=== PATIENT | female | born 1955 | race Two or more races ===

== ENCOUNTER 2017-07-22 05:05 | Inpatient (IN) | payer OTHER, BC ==
[2017-07-11 13:49] VITALS: BMI 27.8
[2017-07-22] MEDS ORDERED: BUPIVACAINE HCL/PF 0.5% (5MG/ML) 10 ML VIAL ONE (07:21)
[2017-07-22] MEDS ORDERED: LIDOCAINE 1%/EPI 1:100000 (20 ML MULTI DOSE VIAL) ONE (07:21)
[2017-07-22] MEDS ORDERED: GENTAMICIN SO4 80 MG/2 ML VIAL ONE (07:21)
[2017-07-22] MEDS ORDERED: VANCOMYCIN 1,000 MG VIAL (RESTRICTED TO ID ONLY) ONE (07:21)
--- NOTE | 2017-07-22 07:32 | HP ---
History & Physical Update - History History: No Change - Physical Physical: No Change - Assessment Assessment: No Change - Plan Plan: No Change
[2017-07-22] MEDS ORDERED: MIDAZOLAM HCL 2 MG/2 ML SINGLE DOSE VIAL ONE ×2 (08:28)
[2017-07-22] MEDS: ceFAZolin SODIUM 1 GM VIAL IVPB ONE ×3 (08:34→19:38)
[2017-07-22] MEDS ORDERED: PROPOFOL 20 ML ONE (08:35)
[2017-07-22] MEDS ORDERED: ROCURONIUM BROMIDE 50 MG/5 ML VIAL ONE ×2 (08:35→09:18)
[2017-07-22] MEDS ORDERED: VANCOMYCIN 1,000 MG VIAL (RESTRICTED TO ID ONLY) IVPB ONE (08:44)
[2017-07-22] MEDS ORDERED: ePHEDrine SULFATE 50 MG/1 ML AMPULE ONE (09:22)
[2017-07-22] MEDS ORDERED: THROMBIN (BOVINE) 5,000 UNIT VIAL TP ONE (09:43)
[2017-07-22] MEDS ORDERED: LIDOCAINE 1%/EPI 1:100000 (20 ML MULTI DOSE VIAL) INF ONE (09:43)
[2017-07-22] MEDS ORDERED: BUPIVACAINE HCL/PF 0.5% (5MG/ML) 10 ML VIAL IJ ONE (09:45)
[2017-07-22] MEDS ORDERED: NEOSTIGMINE METHYLSULFATE 0.5 MG/ML - 10 ML MDV ONE (10:52)
--- NOTE | 2017-07-22 11:26 | OP ---
Operative Note - Note: Operative Date: 07/22/17 Pre-Operative Diagnosis: Right T11/12 disc herniation, radiculopathy Operation: T11/12 (right) laminectomy, discectomy, fusion, instrumentation Post-Operative Diagnosis: Same as Pre-op Surgeon: Dwaine Magaña Laboratory Analyst: Brennan Nunez Anesthesiologist/ALGEBRAIST: Pili Bernal MD Anesthesia: General Specimens Removed: T11/12 disc Estimated Blood Loss (mls): 25 Drains, Volume Out (mls): 250 (Tejada) Fluid Volume Replaced (mls): 1,000 Operative Report Dictated: Yes
--- NOTE | 2017-07-22 11:27 | SURG ---
Surgery Brand Inspector Note Brand Inspector: Brennan Nunez PA-C Date of Service: 07/22/17 Diagnosis: T11/12 herniated disc, radiculopathy Procedure: T11/12 (right) laminectomy, discectomy, fusion, instrumentation I was present for the entirety of the operative procedure. For further detail, please refer to operative report. Visit type - Case Type Case Type: Scheduled Admission - New patient This patient is new to me today: Yes Date on this admission: 07/22/17
[2017-07-22] MEDS ORDERED: ONDANSETRON 4 MG/2 ML VIAL IVPUSH PRN (12:05)
[2017-07-22] MEDS: LACTATED RINGERS SOLUTION 1,000 ML IV SCH ×2 (15:47→17:24)
[2017-07-22] MEDS: HEPARIN NA (PORCINE) 5,000 UNITS/ML 1ML VIAL SQ SCH ×2 (15:47→21:16)
[2017-07-22] MEDS ORDERED: PT OWN MED DRAWER 7, Y5N ONE ×2 (17:13→19:23)
[2017-07-22] MEDS: oxyCODONE HCL 5 MG TABLET PO PRN ×2 (17:23→21:18)
[2017-07-22] MEDS ORDERED: traMADol HCL 50 MG TABLET PO PRN (18:00)
[2017-07-22] MEDS: ACETAMINOPHEN 325 MG TABLET (FP) PO PRN ×2 (18:53→23:52)
[2017-07-22] MEDS: CEFAZOLIN 1 GM PUSH 1 GM/10 ML DISP.SYRIN IVPUSH SCH (19:30)
[2017-07-22] MEDS: ESCITALOPRAM OXALATE 10 MG TABLET (FP) PO SCH (21:16)
[2017-07-22] MEDS ORDERED: diazePAM 2 MG TABLET PO PRN (22:00)
[2017-07-22] MEDS ORDERED: HEPARIN NA (PORCINE) 5,000 UNITS/ML 1ML VIAL SQ SCH (22:00)
[2017-07-23] MEDS: LACTATED RINGERS SOLUTION 1,000 ML IV SCH (03:02)
[2017-07-23] MEDS: ceFAZolin SODIUM 1 GM VIAL IVPB ONE (03:02)
[2017-07-23] MEDS: CEFAZOLIN 1 GM PUSH 1 GM/10 ML DISP.SYRIN IVPUSH SCH ×2 (03:03→10:01)
[2017-07-23] MEDS: HEPARIN NA (PORCINE) 5,000 UNITS/ML 1ML VIAL SQ SCH ×3 (06:21→21:50)
[2017-07-23 07:57] LABS: HEMATOCRIT 32.4 % (32.4-45.2); HEMOGLOBIN 10.6 GM/dL (10.7-15.3); MCH 30.7 pg (25.7-33.7); MCHC 32.7 g/dl (32.0-36.0); MEAN CELL VOLUME 93.8 fl (80-96); MEAN PLT VOLUME 8.7 fl (7.5-11.1); PLATELET COUNT 221 K/MM3 (134-434); RBC 3.45 M/mm3 (3.60-5.2); RDW 12.1 % (11.6-15.6); WHITE BLOOD COUNT 9.8 K/mm3 (4.0-10.0)
[2017-07-23 08:50] LABS: CHLORIDE 104 mmol/L (98-107); SODIUM 139 mmol/L (136-145)
[2017-07-23 09:00] LABS: ANION GAP 8 (8-16); BLOOD UREA NITROGEN 12 mg/dL (7-18); CO2 27 mmol/L (21-32); CREATININE 0.7 mg/dL (0.55-1.02); GLUCOSE,RANDOM 104 mg/dL (74-106)
[2017-07-23] MEDS ORDERED: traZODone HCL 50 MG TABLET (FP) PO SCH (10:00)
[2017-07-23] MEDS ORDERED: ASPIRIN COATED 81 MG TABLET.EC PO SCH (10:00)
[2017-07-23] MEDS: CALCIUM 500MG/VIT-D 200 UNITS COMBO TABLET (FP) PO SCH (10:02)
[2017-07-23] MEDS: MULTIVITAMINS THER W-MINERALS COMBO TABLET (FP) PO SCH (10:02)
[2017-07-23] MEDS: PANTOPRAZOLE 40 MG TABLET (FP) PO SCH (10:02)
[2017-07-23] MEDS: TIMOLOL 0.5% OPHTHALMIC SOL 5 ML BOTTLE OU SCH (10:03)
[2017-07-23] MEDS: oxyCODONE HCL 5 MG TABLET PO PRN ×2 (10:06→21:51)
[2017-07-23] MEDS: ASCORBIC ACID 500 MG TABLET (FP) PO SCH (10:06)
--- NOTE | 2017-07-23 10:38 | PATH ---
Surgical Pathology Report Patient Name: CARRIE RIVERA Med. Rec. #: [id number] /Age/Gender: 1955 (Age: 62) / F Account: [id number] Location: [facility] MED/SURG Taken: 07/22/2017 Received: 07/22/2017 Reported: 07/23/2017 Physicians: Dwaine Miles M.D. Specimen(s) Received DISC T11-T12 Clinical History Gout, right T11-T12 disc herniation Final Diagnosis DISC, T11-T12, DISCECTOMY: FRAGMENTS OF INTERVERTEBRAL DISC TISSUE. Electronically Signed Barbara Means M.D. Gross Description Received in formalin labeled "T11-T12 disc," is a 1.5 x 1.3 x 0.3 cm aggregate of lee fragments of cartilage and possible bone. The specimen is submitted in toto in one cassette, following decalcification. /07/22/201707/22/2017
[2017-07-23] MEDS ORDERED: SODIUM CHLORIDE 500 ML IV STA (10:46)
--- NOTE | 2017-07-23 12:26 | PN ---
Progress Note (short form) - Note Progress Note: Anesthesiology Post-op POD#1 s/p T11-12 discectomy and fusion under GA. Pt. feels well. She only c/o some light-headedness when walking. She otherwise has good pain control and denies n/v. VSS. Encouraged incentive spirometry.
--- NOTE | 2017-07-23 13:46 | PN ---
Progress Note (short form) - Note Progress Note: Pt seen earlier this am with Dr. Magaña. She has complaints of pain on the right side of her back. With attempting to get out of bed today the patient became vasovagal. Her vital were stable at the time. She had no complaints of CP /SOB and felt dizzy at the time. 500 NS bolus was given with repeat stable vitals of 125/70, 68, 20. Vital Signs Period Temp Pulse Resp BP Sys/Dale Pulse Ox Last 24 Hr 97.4 F-98.4 F 62-84 16-20 104-133/56-85 100-100 EVELYN-60ml serosangrenous Tejada 1600ml yellow urine GEN: appears comfortable CV: RRR Lungs: CTA b/l Back dressing c/d/i. EVELYN-removed this am and dry 4x4/tegaderm gauze applied. LE: no calf tenderness SCDs in place b/l Neuro: 5/5 dorsi/plantar flexion b/l CBC, BMP 07/23/17 06:00 07/23/17 06:00 A/P: 62 yo female s/p T11/12 (right) laminectomy, discectomy, fusion, instrumentation Tejada removed/evelyn removed this am Oob to chair this afternoon, she tolerated a diet for lunch Discontinue IV abx/maintenance fluids Pain medications as needed Wear TLSO brace when oob to chair/ambulating >5 minutes
[2017-07-23] MEDS: ACETAMINOPHEN 325 MG TABLET (FP) PO PRN ×2 (14:37→21:52)
[2017-07-23] MEDS: traZODone HCL 50 MG TABLET (FP) PO SCH (21:49)
[2017-07-23] MEDS: DOCUSATE SODIUM 100 MG CAPSULE (FP) PO SCH (21:49)
[2017-07-23] MEDS: ESCITALOPRAM OXALATE 10 MG TABLET (FP) PO SCH (21:51)
[2017-07-24] MEDS: DOCUSATE SODIUM 100 MG CAPSULE (FP) PO SCH ×3 (06:37→21:49)
[2017-07-24] MEDS: HEPARIN NA (PORCINE) 5,000 UNITS/ML 1ML VIAL SQ SCH ×3 (06:37→21:51)
[2017-07-24 07:43] LABS: BASO % 0.3 % (0-2.0); EOS % 0.4 % (0-4.5); HEMATOCRIT 33.5 % (32.4-45.2); HEMOGLOBIN 10.8 GM/dL (10.7-15.3); LYMPH % 19.8 % (8-40); MCH 30.5 pg (25.7-33.7); MCHC 32.3 g/dl (32.0-36.0); MEAN CELL VOLUME 94.4 fl (80-96); MEAN PLT VOLUME 8.8 fl (7.5-11.1); MONO % 7.9 % (3.8-10.2); NEUT % 71.6 % (42.8-82.8); PLATELET COUNT 197 K/MM3 (134-434); RBC 3.55 M/mm3 (3.60-5.2); RDW 12.4 % (11.6-15.6); WHITE BLOOD COUNT 9.3 K/mm3 (4.0-10.0)
[2017-07-24] MEDS ORDERED: POLYETHYLENE GLYCOL 3350 119 GM BTL PO PRN (08:23)
[2017-07-24] MEDS: ACETAMINOPHEN 325 MG TABLET (FP) PO PRN (08:30)
[2017-07-24] MEDS: ASCORBIC ACID 500 MG TABLET (FP) PO SCH (09:48)
[2017-07-24] MEDS: MULTIVITAMINS THER W-MINERALS COMBO TABLET (FP) PO SCH (09:48)
[2017-07-24] MEDS: CALCIUM 500MG/VIT-D 200 UNITS COMBO TABLET (FP) PO SCH (09:48)
[2017-07-24] MEDS: TIMOLOL 0.5% OPHTHALMIC SOL 5 ML BOTTLE OU SCH ×2 (09:49→09:56)
[2017-07-24] MEDS: PANTOPRAZOLE 40 MG TABLET (FP) PO SCH (09:54)
[2017-07-24] MEDS ORDERED: SODIUM PHOSPHATE/NA BIPHOS 133 ML ENEMA PR ONE (10:47)
[2017-07-24] MEDS ORDERED: SIMETHICONE 80 MG TAB.CHEW (FP) PO PRN (10:49)
[2017-07-24 13:16] LABS: ANION GAP 11 (8-16); BLOOD UREA NITROGEN 12 mg/dL (7-18); CALCIUM 8.5 mg/dL (8.5-10.1); CHLORIDE 104 mmol/L (98-107); CO2 25 mmol/L (21-32); CREATININE 0.7 mg/dL (0.55-1.02); GLUCOSE,RANDOM 109 mg/dL (74-106); POTASSIUM 3.8 mmol/L (3.5-5.1); SGOT/AST 14 U/L (15-37); SGPT/ALT 16 U/L (12-78); SODIUM 140 mmol/L (136-145)
[2017-07-24 13:18] LABS: ALK PHOS 56 U/L (45-117); BILIRUBIN,TOTAL 0.6 mg/dL (0.2-1.0); TOT PROT 5.8 g/dl (6.4-8.2)
[2017-07-24] MEDS: ACETAMINOPHEN 500 MG TABLET (FP) PO SCH ×2 (14:19→19:50)
[2017-07-24] MEDS: ESCITALOPRAM OXALATE 10 MG TABLET (FP) PO SCH (21:49)
[2017-07-24] MEDS: traZODone HCL 50 MG TABLET (FP) PO SCH (21:52)
[2017-07-25] MEDS: ACETAMINOPHEN 500 MG TABLET (FP) PO SCH ×2 (01:25→08:23)
[2017-07-25] MEDS: DOCUSATE SODIUM 100 MG CAPSULE (FP) PO SCH (05:52)
[2017-07-25] MEDS: HEPARIN NA (PORCINE) 5,000 UNITS/ML 1ML VIAL SQ SCH ×3 (05:54→22:10)
--- NOTE | 2017-07-25 08:45 | PN ---
Progress Note (short form) - Note Progress Note: POD #3 Supine in bed. Resting comfortably. Patient has had a few episodes of near- syncope (thought to be orthostatic). Per RN note from yesterday at 19:29hrs pt had a syncopal episode (lasted < 2 sec) after rising from seated position in bathroom. RN present at the time of said event and caught pt...placed her back in chair then into bed. Dr. Magaña was made aware after the event. Pt has h/o constipation. Started on Docusate 100mg TID. Pt refusing Mirlax and requested enema. Denies CP, palpitations, SOB or DOVE prior too or post syncopal episodes. Last Vital Signs Temp Pulse Resp BP Pulse Ox 98.6 F 69 20 126/75 96 /12/05 07:34 07/25/17 07:34 07/25/17 07:34 07/25/17 07:34 07/24/17 21:00 CBC, BMP 18 06:00 /11/05 13:00 PE GEN: alert. nad. CV: RRR Lungs: CTA b/l anteriorly BACK: Aquacel dressing c/d/i. LE: SCDs bilat. (-) calf tenderness Neuro: 5/5 dorsi/plantar flexion b/l A/P POD #3 s/p T11/12 (right) laminectomy, discectomy, fusion, instrumentation Medical Consult - Dr. Smith Diet as tolerated Colace 100mg TID Enema prn No NSAIDs OOB and cont to ambulate with PT Wear TLSO brace when oob to chair/ambulating >5 minutes
[2017-07-25] MEDS: MULTIVITAMINS THER W-MINERALS COMBO TABLET (FP) PO SCH (09:48)
[2017-07-25] MEDS: ASCORBIC ACID 500 MG TABLET (FP) PO SCH (09:49)
[2017-07-25] MEDS: CALCIUM 500MG/VIT-D 200 UNITS COMBO TABLET (FP) PO SCH (09:49)
[2017-07-25] MEDS: PANTOPRAZOLE 40 MG TABLET (FP) PO SCH (09:49)
[2017-07-25] MEDS: TIMOLOL 0.5% OPHTHALMIC SOL 5 ML BOTTLE OU SCH (09:50)
[2017-07-25] MEDS ORDERED: ACETAMINOPHEN 500 MG TABLET (FP) PO SCH (11:00)
[2017-07-25] MEDS ORDERED: MAGNESIUM HYDROX 2400MG/30ML ORAL SUSPENSION 30 ML CUP PO PRN (11:44)
--- NOTE | 2017-07-25 11:50 | CONSULT ---
Consult Consult Specialty:: MEDICINE Referred by:: ADY Reason for Consultation:: SYNCOPE - History of Present Illness Chief Complaint: SYNCOPE POD #3 THORACIC LAMINECTOMY History of Present Illness: 62 Y/O FEMALE WITH HISTORY OF HTN CONTROLLED WITH LIFESTYLE CHANGES NO MEDS, DEPRESSION, ANXIETY, HERE FOR THORACIC LAMINECTOMY DEVELOPED POST-OP SYNCOPE X 2 EPISODES. PATIENT HAD A COMPLETE PREOP CLEARANCE WITH HER PMD AND CLINICAL BUSINESS MANAGER WITH HOLTERMONITORS, ECHO, STRESS TEST PER PATIENT ALL NORMAL AND WAS CLEARED FOR THIS SURGERY. - History Source History Provided By: Patient - Past Medical History LIBRARIAN HELPER: Yes: Syncope, Other - Alcohol/Substance Use Hx Alcohol Use: No - Smoking History Smoking history: Never smoked Have you smoked in the past 12 months: No Home Medications - Allergies Allergies/Adverse Reactions: Allergies Allergy/AdvReac Type Severity Reaction Status Date / Time prochlorperazine Allergy Severe Verified 07/11/17 13:50 [From Compazine] latex Allergy Intermediate Itching Verified 07/11/17 13:50 - Home Medications Home Medications: Ambulatory Orders Ascorbic Acid [Vitamin C] 1,000 mg PO DAILY 07/11/17 Aspirin Coated [Ecotrin -] 81 mg PO DAILY 07/11/17 Calcium Carb, Citrate/Vit D3 [Calcium + D3 ER Tablet] 1 each PO DAILY 07/11/17 Escitalopram Oxalate [Lexapro -] 10 mg PO HS 07/11/17 Multivit-Min/Iron/Folic/Lutein [Centrum Silver Women Tablet] 1 each PO DAILY Timolol [Betimol] 1 drop OU HS 07/22/17 Trazodone HCl 50 mg PO DAILY 07/22/17 Review of Systems Findings/Remarks: AWAKE ALERT BEDSIDE MILD DISTRESS - Review of Systems Constitutional: reports: No Symptoms Eyes: reports: No Symptoms HENT: reports: No Symptoms Neck: reports: No Symptoms Cardiovascular: reports: No Symptoms Respiratory: reports: No Symptoms Gastrointestinal: reports: Constipation Genitourinary: reports: No Symptoms Musculoskeletal: reports: Back Pain Integumentary: reports: No Symptoms Neurological: reports: Dizziness, Syncope Endocrine: reports: No Symptoms Hematology/Lymphatic: reports: No Symptoms Psychiatric: reports: Anxiety Physical Exam Vital Signs: Vital Signs Temperature 98.6 F 07/25/17 07:34 Pulse Rate 69 07/25/17 10:20 Respiratory Rate 20 07/25/17 10:20 Blood Pressure 101/63 07/25/17 10:20 O2 Sat by Pulse Oximetry (%) 96 07/24/17 21:00 Constitutional: Yes: Mild Distress Eyes: Yes: WNL HENT: Yes: WNL Neck: Yes: WNL Cardiovascular: Yes: WNL Respiratory: Yes: WNL Gastrointestinal: Yes: WNL Renal/: Yes: WNL Musculoskeletal: Yes: Back Pain Extremities: Yes: WNL Edema: No Peripheral Pulses WNL: Yes Integumentary: Yes: WNL Wound/Incision: Yes: Dressing Dry and Intact Neurological: Yes: Other ...Motor Strength: LLE, RLE Psychiatric: Yes: Other Labs: CBC, BMP 07/24/17 06:00 07/24/17 13:00 Problem List - Problems (1) Syncope Code(s): R55 - SYNCOPE AND COLLAPSE Qualifiers: Syncope type: vasovagal syncope Qualified Code(s): R55 - Syncope and collapse (2) Vaso vagal episode Code(s): R55 - SYNCOPE AND COLLAPSE (3) H/O laminectomy Code(s): Z98.890 - OTHER SPECIFIED POSTPROCEDURAL STATES (4) Anxiety and depression Code(s): F41.8 - OTHER SPECIFIED ANXIETY DISORDERS Assessment/Plan TRANSFER TO TELEMETRY CARDIOLOGY CONSULT CHECK LABS AND CARDIAC ENZYMES MAG/PO LEVELS EKG NOW PT EVAL STOP ALL NARCOTICS TYLENOL IV Q 6HRS MOM FOR CONSTIPATION MIRALX DAILY NEURO CHECKS FALL PRECAUTIONS
[2017-07-25 13:36] LABS: ALBUMIN 2.8 g/dl (3.4-5.0); ANION GAP 6 (8-16); BLOOD UREA NITROGEN 10 mg/dL (7-18); CALCIUM 8.3 mg/dL (8.5-10.1); CHLORIDE 106 mmol/L (98-107); CO2 27 mmol/L (21-32); GLUCOSE,RANDOM 102 mg/dL (74-106); POTASSIUM 3.9 mmol/L (3.5-5.1); SODIUM 139 mmol/L (136-145)
[2017-07-25 13:41] LABS: ALK PHOS 67 U/L (45-117); BILIRUBIN,TOTAL 0.4 mg/dL (0.2-1.0); CREATININE 0.7 mg/dL (0.55-1.02); PHOSPHOROUS 3.3 mg/dL (2.5-4.9); SGOT/AST 60 U/L (15-37); SGPT/ALT 55 U/L (12-78); TOT PROT 6.1 g/dl (6.4-8.2)
[2017-07-25] MEDS ORDERED: ACETAMINOPHEN 325 MG TABLET (FP) PO SCH (14:00)
--- NOTE | 2017-07-25 15:15 | EKG ---
Test Reason : Blood Pressure : / mmHG Vent. Rate : 073 BPM Atrial Rate : 073 BPM P-R Int : 176 ms QRS Dur : 082 ms QT Int : 384 ms P-R-T Axes : 032 040 033 degrees QTc Int : 423 ms NORMAL SINUS RHYTHM NORMAL ECG WHEN COMPARED WITH ECG OF 11-JUL-2017 13:21, NO SIGNIFICANT CHANGE WAS FOUND Confirmed by DESHAUN AZUL MD ([id number]) on 07/25/2017 3:15:20 PM Referred By: Confirmed By:DESHAUN AZUL MD
[2017-07-25] MEDS ORDERED: PT OWN MED DRAWER 7, Y5N ONE (16:32)
[2017-07-25] MEDS: ACETAMINOPHEN 1000 MG/100 ML VIAL (NON FORMULARY) IVPB PRN (16:36)
--- NOTE | 2017-07-25 17:30 | CON.CARD ---
Consult Consult Specialty:: Cardiology Referred by:: Ty Panchal Reason for Consultation:: syncope - History of Present Illness Chief Complaint: Syncope History of Present Illness: 62 year old female with a pmhx of htn controlled off meds as per patient, depression, and anxiety who is here for thoracic laminectomy and now post op developed syncope x2. Has been feeling light headed since surgery. No chest pain or palpitations. No dyspnea. Reports had cardiac work up prior to surgery as outpatient with holter/echo/stress test and reports they were normal. 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, Other - Alcohol/Substance Use Hx Alcohol Use: No - Smoking History Smoking history: Never smoked Have you smoked in the past 12 months: No Home Medications - Allergies Allergies/Adverse Reactions: Allergies Allergy/AdvReac Type Severity Reaction Status Date / Time prochlorperazine Allergy Severe Verified 07/11/17 13:50 [From Compazine] latex Allergy Intermediate Itching Verified 07/11/17 13:50 - Home Medications Home Medications: Ambulatory Orders Ascorbic Acid [Vitamin C] 1,000 mg PO DAILY 07/11/17 Aspirin Coated [Ecotrin -] 81 mg PO DAILY 07/11/17 Calcium Carb, Citrate/Vit D3 [Calcium + D3 ER Tablet] 1 each PO DAILY 07/11/17 Escitalopram Oxalate [Lexapro -] 10 mg PO HS 07/11/17 Multivit-Min/Iron/Folic/Lutein [Centrum Silver Women Tablet] 1 each PO DAILY Timolol [Betimol] 1 drop OU HS 07/22/17 Trazodone HCl 50 mg PO DAILY 07/22/17 Vital Signs: Vital Signs Temperature 98.0 F 07/25/17 09:10 Pulse Rate 69 07/25/17 10:20 Respiratory Rate 20 07/25/17 10:20 Blood Pressure 101/63 07/25/17 10:20 O2 Sat by Pulse Oximetry (%) 94 L 07/25/17 09:00 Constitutional: Yes: No Distress Neck: Yes: Supple Respiratory: Yes: CTA Bilaterally Gastrointestinal: Yes: Normal Bowel Sounds, Soft Cardiovascular: Yes: Regular Rate and Rhythm JVD: No Carotid Bruit: No Heart Sounds: Yes: S1, S2 Murmur: No: Systolic Murmur Edema: No - Other Data Labs, Other Data: CBC, BMP 07/24/17 06:00 07/25/17 12:34 Troponin, BNP 07/25/17 12:34 Troponin I < 0.02 Troponin, BNP 07/25/17 12:34 Troponin I < 0.02 Imaging - Results EKG: Image Reviewed Problem List - Problems (1) Syncope Code(s): R55 - SYNCOPE AND COLLAPSE Qualifiers: Syncope type: vasovagal syncope Qualified Code(s): R55 - Syncope and collapse Assessment/Plan 62 year old female with a pmhx of htn controlled off meds as per patient, depression, and anxiety who is here for thoracic laminectomy and now post op developed syncope x2. Has been feeling light headed since surgery. No chest pain or palpitations. No dyspnea. Reports had cardiac work up prior to surgery as outpatient with holter/echo/stress test and reports they were normal. 1) Syncope EKG-unremarkable Transfer to tele Repeat labs Trend Ce's which are negative first set Pain meds only as needed as will lower bp which is already on low normal side. Ensure good hydration and if not IVF's Would attempt to get outpt records of echo/stress/holter Check orthostatics Serial ekg
[2017-07-25] MEDS ORDERED: traZODone HCL 50 MG TABLET (FP) PO SCH (22:00)
[2017-07-25] MEDS: oxyCODONE HCL 5 MG TABLET PO PRN (22:09)
[2017-07-25] MEDS: ESCITALOPRAM OXALATE 10 MG TABLET (FP) PO SCH (22:09)
[2017-07-26] MEDS: HEPARIN NA (PORCINE) 5,000 UNITS/ML 1ML VIAL SQ SCH (05:46)
[2017-07-26] MEDS: ASCORBIC ACID 500 MG TABLET (FP) PO SCH (09:18)
[2017-07-26] MEDS: MULTIVITAMINS THER W-MINERALS COMBO TABLET (FP) PO SCH (09:18)
[2017-07-26] MEDS: CALCIUM 500MG/VIT-D 200 UNITS COMBO TABLET (FP) PO SCH (09:18)
[2017-07-26] MEDS: PANTOPRAZOLE 40 MG TABLET (FP) PO SCH (09:19)
[2017-07-26] MEDS: TIMOLOL 0.5% OPHTHALMIC SOL 5 ML BOTTLE OU SCH (09:21)
--- NOTE | 2017-07-26 09:26 | PN ---
Progress Note, Physician History of Present Illness: feels better this am - Current Medication List Current Medications: Active Medications Acetaminophen (Ofirmev Injection -) 1,000 mg IVPB Q6H PRN PRN Reason: FEVER OR PAIN Last Admin: 07/25/17 16:36 Dose: 1,000 mg Ascorbic Acid (Vitamin C -) 1,000 mg PO DAILY [facility] Last Admin: 07/26/17 09:18 Dose: Not Given Calcium Carbonate/Cholecalciferol (Os-J Carlos 500+D -) 1 tab PO DAILY [facility] Last Admin: 07/26/17 09:18 Dose: Not Given Escitalopram Oxalate (Lexapro -) 10 mg PO [facility] Last Admin: 07/25/17 22:09 Dose: 10 mg Heparin Sodium (Porcine) (Heparin -) 5,000 unit SQ TID [facility] Last Admin: 07/26/17 05:46 Dose: 5,000 unit Magnesium Hydroxide (Milk Of Magnesia -) 30 ml PO DAILY PRN PRN Reason: CONSTIPATION Multivitamins/Minerals (Theragran-M) 1 each PO DAILY [facility] Last Admin: 07/26/17 09:18 Dose: Not Given Pantoprazole Sodium (Protonix -) 40 mg PO DAILY [facility] Last Admin: 07/26/17 09:19 Dose: 40 mg Polyethylene Glycol (Miralax (For Daily Use) -) 17 gm PO DAILY PRN PRN Reason: CONSTIPATION Simethicone (Mylicon -) 80 mg PO QID PRN PRN Reason: GAS Stop: 07/26/17 10:48 Timolol Maleate (Timoptic 0.5%) 1 drop OU DAILY [facility] Last Admin: 07/26/17 09:21 Dose: Not Given Trazodone HCl (Desyrel -) 50 mg PO HS [facility] Last Admin: 07/25/17 22:09 Dose: 50 mg - Objective Vital Signs: Vital Signs Temperature 99 F 07/26/17 06:20 Pulse Rate 75 07/26/17 06:20 Respiratory Rate 20 07/26/17 06:20 Blood Pressure 127/73 07/26/17 06:20 O2 Sat by Pulse Oximetry (%) 97 07/25/17 21:00 Cardiovascular: Yes: Regular Rate and Rhythm Respiratory: Yes: Regular, CTA Bilaterally Gastrointestinal: Yes: Normal Bowel Sounds, Soft Labs: CBC, BMP 07/24/17 06:00 07/25/17 12:34 Problem List - Problems (1) Anxiety and depression Assessment/Plan: monitor--stable at this time Code(s): F41.8 - OTHER SPECIFIED ANXIETY DISORDERS (2) H/O laminectomy Assessment/Plan: per NS Code(s): Z98.890 - OTHER SPECIFIED POSTPROCEDURAL STATES (3) Syncope Assessment/Plan: w/u in progress may have been due to orthostasis Code(s): R55 - SYNCOPE AND COLLAPSE Qualifiers: Syncope type: vasovagal syncope Qualified Code(s): R55 - Syncope and collapse (4) Vaso vagal episode Assessment/Plan: as above Code(s): R55 - SYNCOPE AND COLLAPSE
[2017-07-26] MEDS: ACETAMINOPHEN 1000 MG/100 ML VIAL (NON FORMULARY) IVPB PRN ×2 (09:49→16:15)
[2017-07-26 10:58] LABS: BASO % 0.7 % (0-2.0); EOS % 3.1 % (0-4.5); HEMATOCRIT 32.7 % (32.4-45.2); HEMOGLOBIN 10.6 GM/dL (10.7-15.3); LYMPH % 25.6 % (8-40); MCH 30.7 pg (25.7-33.7); MCHC 32.5 g/dl (32.0-36.0); MEAN CELL VOLUME 94.4 fl (80-96); MEAN PLT VOLUME 8.7 fl (7.5-11.1); MONO % 9.8 % (3.8-10.2); NEUT % 60.8 % (42.8-82.8); PLATELET COUNT 227 K/MM3 (134-434); RBC 3.46 M/mm3 (3.60-5.2); RDW 12.5 % (11.6-15.6); WHITE BLOOD COUNT 6.8 K/mm3 (4.0-10.0)
[2017-07-26 11:14] LABS: CHLORIDE 105 mmol/L (98-107); POTASSIUM 3.8 mmol/L (3.5-5.1); SODIUM 137 mmol/L (136-145)
[2017-07-26 11:30] LABS: ALBUMIN 2.6 g/dl (3.4-5.0); ALK PHOS 64 U/L (45-117); ANION GAP 6 (8-16); BILIRUBIN,TOTAL 0.4 mg/dL (0.2-1.0); BLOOD UREA NITROGEN 11 mg/dL (7-18); CO2 26 mmol/L (21-32); CREATININE 0.7 mg/dL (0.55-1.02); GLUCOSE,RANDOM 128 mg/dL (74-106); SGOT/AST 42 U/L (15-37); SGPT/ALT 60 U/L (12-78); TOT PROT 5.8 g/dl (6.4-8.2)
[2017-07-26 13:14] VITALS: TEMP 98.5
--- NOTE | 2017-07-26 13:24 | EKG ---
Test Reason : Blood Pressure : / mmHG Vent. Rate : 091 BPM Atrial Rate : 091 BPM P-R Int : 174 ms QRS Dur : 084 ms QT Int : 370 ms P-R-T Axes : 042 037 020 degrees QTc Int : 455 ms NORMAL SINUS RHYTHM NORMAL ECG WHEN COMPARED WITH ECG OF 25-JUL-2017 11:54, NO SIGNIFICANT CHANGE WAS FOUND Confirmed by DESHAUN AZUL MD ([id number]) on 07/26/2017 1:23:43 PM Referred By: Netta FLEMING Confirmed By:DESHAUN AZUL MD
--- NOTE | 2017-07-26 13:38 | PN ---
Progress Note (short form) - Note Progress Note: Patient improving with diminished pain. Syncope evaluation underway, no initial concerning findings. Patient stable from discharge from Neurosurgery standpoint.
--- NOTE | 2017-07-26 15:56 | PN ---
Progress Note, Physician Chief Complaint: Pt appears comfortable. She has no recurrent syncope or near syncope. No chest pain or SOB. Tele shows sinus without arrhythmia. History of Present Illness: 62 year old female with a pmhx of htn controlled off meds as per patient, depression, and anxiety who is here for thoracic laminectomy and now post op developed syncope x2. Has been feeling light headed since surgery. No chest pain or palpitations. No dyspnea. Reports had cardiac work up prior to surgery as outpatient with holter/echo/stress test and reports they were normal. 62 year old female with a pmhx of htn controlled off meds as per patient, depression, and anxiety who is here for thoracic laminectomy and now post op developed syncope x2. Has been feeling light headed since surgery. No chest pain or palpitations. No dyspnea. Reports had cardiac work up prior to surgery as outpatient with holter/echo/stress test and reports they were normal. - Current Medication List Current Medications: Active Medications Acetaminophen (Ofirmev Injection -) 1,000 mg IVPB Q6H PRN PRN Reason: FEVER OR PAIN Last Admin: 07/26/17 09:49 Dose: 1,000 mg Ascorbic Acid (Vitamin C -) 1,000 mg PO DAILY [facility] Last Admin: 07/26/17 09:18 Dose: Not Given Calcium Carbonate/Cholecalciferol (Os-J Carlos 500+D -) 1 tab PO DAILY [facility] Last Admin: 07/26/17 09:18 Dose: Not Given Escitalopram Oxalate (Lexapro -) 10 mg PO HS [facility] Last Admin: 07/25/17 22:09 Dose: 10 mg Heparin Sodium (Porcine) (Heparin -) 5,000 unit SQ TID [facility] Last Admin: 07/26/17 05:46 Dose: 5,000 unit Magnesium Hydroxide (Milk Of Magnesia -) 30 ml PO DAILY PRN PRN Reason: CONSTIPATION Multivitamins/Minerals (Theragran-M) 1 each PO DAILY [facility] Last Admin: 07/26/17 09:18 Dose: Not Given Pantoprazole Sodium (Protonix -) 40 mg PO DAILY [facility] Last Admin: 07/26/17 09:19 Dose: 40 mg Polyethylene Glycol (Miralax (For Daily Use) -) 17 gm PO DAILY PRN PRN Reason: CONSTIPATION Timolol Maleate (Timoptic 0.5%) 1 drop OU DAILY [facility] Last Admin: 07/26/17 09:21 Dose: Not Given Trazodone HCl (Desyrel -) 50 mg PO HS [facility] Last Admin: 07/25/17 22:09 Dose: 50 mg - Objective Vital Signs: Vital Signs Temperature 98.5 F 07/26/17 10:00 Pulse Rate 85 07/26/17 10:00 Respiratory Rate 18 07/26/17 10:00 Blood Pressure 112/68 07/26/17 10:00 O2 Sat by Pulse Oximetry (%) 94 L 07/26/17 09:00 Constitutional: Yes: Well Nourished, No Distress, Calm Eyes: Yes: WNL, Conjunctiva Clear, EOM Intact HENT: Yes: Atraumatic, Normocephalic Neck: Yes: Supple, Trachea Midline Cardiovascular: Yes: Regular Rate and Rhythm Respiratory: Yes: Regular, CTA Bilaterally Gastrointestinal: Yes: Normal Bowel Sounds, Soft ...Rectal Exam: Yes: Deferred Extremities: Yes: WNL Edema: Yes Labs: CBC, BMP 07/26/17 10:00 07/26/17 10:00 Assessment/Plan Syncope, possible due to transient hypotension. EKG-unremarkable Tele shows no arrhythmia. Pain meds only as needed as will lower bp which is already on low normal side. Ensure good hydration and if not IVF's Encourage oral hydration. Out patient cardiac follow up with Dr. Faria in [place]. No cardiac contraindication to the discharge plan.
[2017-07-26 16:36] VITALS: BP 122/67; PULSE 80
== END 2017-07-26 17:00 | disposition home or self-care (01) | DRG 454 ==
LOC: JSAMEDAYSX 05:05 → EDSTATUS 08:00 → J8W 15:03 → J4S 07-25 15:09
PROVIDERS: ADMIT Neurological Surgery; ATTEND Neurological Surgery
PROC: 0RG60AJ Fusion of Thoracic Vertebral Joint with Interbody Fusion Device, Posterior Approach, Anterior Column, Open Approach (ICD-10-PCS; 2017-07-22)
PROC: 0RG6071 Fusion of Thoracic Vertebral Joint with Autologous Tissue Substitute, Posterior Approach, Posterior Column, Open Approach (ICD-10-PCS; 2017-07-22)
PROC: 0RT90ZZ Resection of Thoracic Vertebral Disc, Open Approach (ICD-10-PCS; 2017-07-22)
PROC: 0JR707Z Replacement of Back Subcutaneous Tissue and Fascia with Autologous Tissue Substitute, Open Approach (ICD-10-PCS; 2017-07-22)
PROC: 01N80ZZ Release Thoracic Nerve, Open Approach (ICD-10-PCS; principal; 2017-07-22 08:00)
DX: M51.14 Intervertebral disc disorders with radiculopathy, thoracic region (principal); G95.29 Other cord compression; M47.894 Other spondylosis, thoracic region; R55 Syncope and collapse; F41.8 Other specified anxiety disorders; I10 Essential (primary) hypertension; M54.14 Radiculopathy, thoracic region
CPT/HCPCS: 36415; 72128-TC; 76000-TC; 80048; 80053; 82550; 83735; 84100; 84443; 84484; 85025; 85027; 86850; 86900; 86901; 88304-TC; 93005; 93010; 94010; 94760; 97116-GP; 97161-GP; J1644

== ENCOUNTER 2018-04-02 06:23 | Inpatient (IN) | payer OTHER, BC ==
[2018-04-01 15:51] VITALS: BMI 27.8
[2018-04-02] MEDS ORDERED: GENTAMICIN SO4 80 MG/2 ML VIAL ONE (07:25)
[2018-04-02] MEDS ORDERED: THROMBIN (BOVINE) 20,000 UNIT VIAL TP ONE (07:25)
[2018-04-02] MEDS ORDERED: VANCOMYCIN 1,000 MG VIAL (RESTRICTED TO ID ONLY) ONE ×2 (07:26→08:54)
[2018-04-02] MEDS ORDERED: ROPIVACAINE HCL 0.5% 30ML VIAL ONE (07:26)
[2018-04-02] MEDS ORDERED: SCOPOLAMINE HYDROBROMIDE 1 PATCH PATCH.TD72 ONE (07:45)
[2018-04-02] MEDS ORDERED: morphine SULFATE/Preservative Free 0.5 MG/ML (1cc Syringe) ONE (08:05)
[2018-04-02] MEDS ORDERED: PROPOFOL 20 ML ONE (08:09)
[2018-04-02] MEDS ORDERED: MIDAZOLAM HCL 2 MG/2 ML SINGLE DOSE VIAL ONE (08:09)
[2018-04-02] MEDS ORDERED: ROCURONIUM BROMIDE 50 MG/5 ML VIAL ONE ×2 (08:10→09:18)
[2018-04-02] MEDS ORDERED: LIDOCAINE HCL/PF 2% SDV 5ML VIAL ONE (08:11)
[2018-04-02] MEDS ORDERED: ceFAZolin SODIUM 1 GM VIAL ONE ×2 (08:54→18:06)
[2018-04-02] MEDS ORDERED: SODIUM CHLORIDE 0.9% P/F 10 ML VIAL IJ ONE (08:54)
[2018-04-02] MEDS ORDERED: ceFAZolin SODIUM 1 GM VIAL IVPB ONE (08:55)
[2018-04-02] MEDS ORDERED: ONDANSETRON 4 MG/2 ML VIAL ONE ×2 (08:55→10:50)
[2018-04-02] MEDS ORDERED: DEXAMETHASONE SOD PHOSPHATE 4 MG/1 ML VIAL ONE ×2 (08:55→10:50)
[2018-04-02] MEDS ORDERED: VANCOMYCIN 1,000 MG VIAL (RESTRICTED TO ID ONLY) IVPB ONE (08:56)
[2018-04-02] MEDS ORDERED: LIDOCAINE 1%/EPI 1:100000 (50 ML MULTI DOSE VIAL) INF ONE (09:13)
[2018-04-02] MEDS ORDERED: BUPIVACAINE LIPOSOME/PF (EXPAREL) 266 MG/20 ML VIAL NR ONE (09:15)
[2018-04-02] MEDS ORDERED: GLYCOPYRROLATE 0.2 MG/1 ML VIAL ONE (10:51)
[2018-04-02] MEDS ORDERED: NEOSTIGMINE METHYLSULFATE 0.5 MG/ML - 10 ML MDV ONE (10:51)
[2018-04-02] MEDS ORDERED: GELATIN, ABSORBABLE 12-7MM EACH SPONGE TP ONE (10:55)
[2018-04-02] MEDS ORDERED: GELATIN, ABSORBABLE 100 EACH SPONGE TP ONE (10:55)
[2018-04-02] MEDS ORDERED: BACITRACIN 50,000 UNITS VIAL NR ONE (10:56)
[2018-04-02] MEDS ORDERED: PROMETHAZINE HCL 25 MG/1 ML VIAL IVPUSH PRN (11:33)
[2018-04-02] MEDS ORDERED: ONDANSETRON 4 MG/2 ML VIAL IVPUSH PRN ×2 (11:33→11:39)
[2018-04-02] MEDS ORDERED: oxyCODONE HCL 5 MG TABLET PO PRN ×2 (11:33→11:39)
--- NOTE | 2018-04-02 11:38 | OP ---
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
[2018-04-02] MEDS ORDERED: morphine SULFATE 4 MG/ML VIAL IVPUSH PRN (11:39)
--- NOTE | 2018-04-02 11:39 | SURG ---
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 For further detail, please refer to operative report.
[2018-04-02] MEDS ORDERED: LACTATED RINGERS SOLUTION 1,000 ML/1,000 ML INFUS.BAG IV SCH (11:45)
[2018-04-02] MEDS ORDERED: DOCUSATE SODIUM 100 MG CAPSULE (FP) PO SCH (14:00)
[2018-04-02] MEDS: LACTATED RINGERS SOLUTION 1,000 ML IV SCH ×2 (16:15→23:10)
[2018-04-02] MEDS: HEPARIN NA (PORCINE) 5,000 UNITS/ML 1ML VIAL SQ SCH ×2 (17:12→22:20)
[2018-04-02] MEDS: DOCUSATE SODIUM 100 MG CAPSULE (FP) PO SCH ×2 (17:12→22:20)
[2018-04-02] MEDS ORDERED: DEXTROSE 5%-WATER - 50 ML IVPB ONE (18:06)
[2018-04-02] MEDS: CEFAZOLIN 1 GM in DEXTROSE 5%-WATER - 50 ML IVPB SCH (18:09)
[2018-04-02] MEDS: traZODone HCL 50 MG TABLET (FP) PO SCH (22:20)
[2018-04-02] MEDS: ATORVASTATIN CA 20 MG TABLET (FP) PO SCH (22:20)
[2018-04-02] MEDS: ESCITALOPRAM OXALATE 10 MG TABLET (FP) PO SCH (22:20)
[2018-04-02] MEDS: TIMOLOL 0.5% OPHTHALMIC SOL 5 ML BOTTLE OU SCH (22:20)
[2018-04-02] MEDS: diphenhydrAMINE HCL 25 MG CAPSULE (FP) PO PRN (22:31)
[2018-04-02] MEDS ORDERED: PT OWN MED DRAWER 7, Y5N ONE ×2 (22:36→23:15)
[2018-04-03] MEDS ORDERED: ceFAZolin SODIUM 1 GM VIAL ONE ×2 (01:34→09:10)
[2018-04-03] MEDS ORDERED: DEXTROSE 5%-WATER - 50 ML IVPB ONE ×2 (01:35→09:10)
[2018-04-03] MEDS: CEFAZOLIN 1 GM in DEXTROSE 5%-WATER - 50 ML IVPB SCH ×2 (01:39→09:16)
[2018-04-03] MEDS ORDERED: PT OWN MED DRAWER 7, Y5N ONE ×3 (05:31→21:23)
[2018-04-03] MEDS: DOCUSATE SODIUM 100 MG CAPSULE (FP) PO SCH ×3 (05:52→21:51)
[2018-04-03] MEDS: HEPARIN NA (PORCINE) 5,000 UNITS/ML 1ML VIAL SQ SCH ×3 (05:52→21:48)
--- NOTE | 2018-04-03 08:20 | PN ---
Progress Note (short form) - Note Progress Note: Anesthesia Post op Pt seen and examined S;Alert and awake comfortable mild itching relieved by benadryl O: Vital Signs Temperature 98 F 04/03/18 05:00 Pulse Rate 68 04/03/18 05:00 Respiratory Rate 18 04/03/18 05:00 Blood Pressure 100/58 04/03/18 05:00 O2 Sat by Pulse Oximetry (%) 100 04/02/18 21:00 A/P s/p L4-5 Decompression Fusion Doing well post op Continue current care Clifford Hernandez MD
[2018-04-03 08:39] LABS: HEMATOCRIT 30.7 % (32.4-45.2); HEMOGLOBIN 10.2 GM/dL (10.7-15.3); MCH 31.4 pg (25.7-33.7); MCHC 33.2 g/dl (32.0-36.0); MEAN CELL VOLUME 94.6 fl (80-96); MEAN PLT VOLUME 8.6 fl (7.5-11.1); PLATELET COUNT 207 K/MM3 (134-434); RBC 3.24 M/mm3 (3.60-5.2); WHITE BLOOD COUNT 10.4 K/mm3 (4.0-10.0)
[2018-04-03 09:15] LABS: BLOOD UREA NITROGEN 16 mg/dL (7-18); CALCIUM 8.3 mg/dL (8.5-10.1); CO2 29 mmol/L (21-32); CREATININE 0.7 mg/dL (0.55-1.3); GLUCOSE,RANDOM 103 mg/dL (74-106)
[2018-04-03] MEDS: FOLIC ACID 1 MG TABLET (FP) PO SCH (09:16)
[2018-04-03] MEDS: MULTIVITAMINS THER W-MINERALS COMBO TABLET (FP) PO SCH (09:16)
[2018-04-03] MEDS: diphenhydrAMINE HCL 25 MG CAPSULE (FP) PO PRN (09:16)
[2018-04-03] MEDS: ASCORBIC ACID 500 MG TABLET (FP) PO SCH (09:16)
[2018-04-03] MEDS: LORazepam 1 MG TABLET PO SCH (09:16)
[2018-04-03] MEDS: FERROUS SO4 325 MG TABLET (FP) PO SCH (09:16)
[2018-04-03] MEDS: oxyCODONE HCL 5 MG TABLET PO PRN (09:17)
--- NOTE | 2018-04-03 09:50 | PN ---
Progress Note (short form) - Note Progress Note: surgery POD #1 s/p L4-L-5 laminectomies, interbody cage, and pedicle screw fixation, patient seen and examined at the bedside. She c/o itchiness mostly on her chest and back but she reports no active rash. Patient states she has focal pain at the incision site and discomfort with movement. She is tolerating her diet and denies any cp, fever, chills, sob. Vital Signs Temp 98.2 F 04/03/18 09:00 Pulse 69 04/03/18 09:00 Resp 18 04/03/18 05:00 BP 102/70 04/03/18 09:00 Pulse Ox 100 04/02/18 21:00 Intake & Output 04/02/18 04/02/18 04/03/18 11:59 23:59 11:59 Intake Total 6355 680 2612 Output Total 730 1215 725 Balance 870 -740 875 Intake: IV 1075 798 1495 Lactated Ringers Solution 375 1250 1,000 ml @ 125 mls/hr IV ASDIR RUDDY Rx#: [id number] IVPB 100 50 Oral 300 Output: Drainage 30 115 25 Back 70 25 Urine 250 1100 700 Tejada 300 700 Estimated Blood Loss 450 Other: Voiding Method Indwelling Catheter Bowel Movement No CBC, BMP 04/03/18 07:00 JOSÉ MANUEL drain: with 95 SS dc post op PE: A&Ox3, NAD Unlabored resp on RA lumbar spine: dressing c/d/i with no evidence of dc, surrounding tissue intact with no tracking erythema, edema, rashes or skin breakdown. Drain removed with tip fully intact, drain site clean and dry with on active d/c. SS fluid in drain. B/L LE compartments, soft, supple and non-tender to palpation with +2 DP pulses. 5/5 dorsi/plantar flexion and sensation to light touch intact throughout. Skin: intact throughout with no rashes or lesions. Problem List - Problems (1) S/P laminectomy with spinal fusion Assessment/Plan: POD # 1 L4-L5 lamiectomy with fusion doing well. 1) Continue OOB with TLSO brace 2) DVT propylaxis with SQ heparin and scds 3) Pain control 4) Encourage daily IS 5) D/c planning for home Evaluation and plan discussed with Dr Magaña Code(s): Z98.1 - ARTHRODESIS STATUS
[2018-04-03] MEDS: PANTOPRAZOLE 40 MG TABLET (FP) PO SCH (10:00)
[2018-04-03] MEDS: CALCIUM 500MG/VIT-D 200 UNITS COMBO TABLET (FP) PO SCH (10:00)
[2018-04-03 10:19] LABS: ANION GAP 7 MMOL/L (8-16); CHLORIDE 102 mmol/L (98-107); POTASSIUM 4.1 mmol/L (3.5-5.1); SODIUM 138 mmol/L (136-145)
[2018-04-03] MEDS: LACTATED RINGERS SOLUTION 1,000 ML IV SCH (14:32)
[2018-04-03] MEDS: ACETAMINOPHEN 500 MG TABLET (FP) PO PRN ×2 (15:13→21:49)
--- NOTE | 2018-04-03 17:05 | PATH ---
Surgical Pathology Report Patient Name: CARRIE RIVERA Med. Rec. #: [id number] /Age/Gender: 1955 (Age: 62) / F Account: [id number] Location: [facility] MED/SURG Taken: 04/02/2018 Received: 04/02/2018 Reported: 04/03/2018 Physicians: Dwaine Miles M.D. 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 Electronically Signed Barbara Means M.D. Gross Description Received in formalin labeled "ligamentum flavum," is a 3.5 x 2.5 x 0.3 cm lee portion of fibrocartilaginous tissue. Stock Saw Operator sections are submitted in one cassette, following decalcification. /04/02/2018 [facility]04/02/2018
[2018-04-03] MEDS: ESCITALOPRAM OXALATE 10 MG TABLET (FP) PO SCH (21:48)
[2018-04-03] MEDS: ATORVASTATIN CA 20 MG TABLET (FP) PO SCH (21:48)
[2018-04-03] MEDS: traZODone HCL 50 MG TABLET (FP) PO SCH (21:48)
[2018-04-03] MEDS: TIMOLOL 0.5% OPHTHALMIC SOL 5 ML BOTTLE OU SCH (21:50)
[2018-04-03] MEDS: POLYETHYLENE GLYCOL 3350 119 GM BTL PO SCH (21:50)
[2018-04-04] MEDS: ACETAMINOPHEN 500 MG TABLET (FP) PO PRN ×2 (06:46→19:54)
[2018-04-04] MEDS: HEPARIN NA (PORCINE) 5,000 UNITS/ML 1ML VIAL SQ SCH ×3 (06:50→21:32)
[2018-04-04] MEDS: DOCUSATE SODIUM 100 MG CAPSULE (FP) PO SCH ×3 (06:50→21:31)
[2018-04-04] MEDS: LORazepam 1 MG TABLET PO SCH (09:25)
[2018-04-04] MEDS: FOLIC ACID 1 MG TABLET (FP) PO SCH (09:25)
[2018-04-04] MEDS: PANTOPRAZOLE 40 MG TABLET (FP) PO SCH (09:25)
[2018-04-04] MEDS: FERROUS SO4 325 MG TABLET (FP) PO SCH (09:25)
[2018-04-04] MEDS: MULTIVITAMINS THER W-MINERALS COMBO TABLET (FP) PO SCH (09:25)
[2018-04-04] MEDS: CALCIUM 500MG/VIT-D 200 UNITS COMBO TABLET (FP) PO SCH (09:25)
[2018-04-04] MEDS: ASCORBIC ACID 500 MG TABLET (FP) PO SCH (09:25)
[2018-04-04] MEDS ORDERED: PT OWN MED DRAWER 7, Y5N ONE (21:03)
[2018-04-04] MEDS: TIMOLOL 0.5% OPHTHALMIC SOL 5 ML BOTTLE OU SCH (21:31)
[2018-04-04] MEDS: oxyCODONE HCL 5 MG TABLET PO PRN (21:31)
[2018-04-04] MEDS: traZODone HCL 50 MG TABLET (FP) PO SCH (21:31)
[2018-04-04] MEDS: ATORVASTATIN CA 20 MG TABLET (FP) PO SCH (21:31)
[2018-04-04] MEDS: ESCITALOPRAM OXALATE 10 MG TABLET (FP) PO SCH (21:31)
[2018-04-04] MEDS: POLYETHYLENE GLYCOL 3350 119 GM BTL PO SCH (21:37)
[2018-04-05] MEDS: DOCUSATE SODIUM 100 MG CAPSULE (FP) PO SCH (06:44)
[2018-04-05] MEDS: HEPARIN NA (PORCINE) 5,000 UNITS/ML 1ML VIAL SQ SCH (06:47)
[2018-04-05] MEDS: FOLIC ACID 1 MG TABLET (FP) PO SCH (09:18)
[2018-04-05] MEDS: MULTIVITAMINS THER W-MINERALS COMBO TABLET (FP) PO SCH (09:18)
[2018-04-05] MEDS: LORazepam 1 MG TABLET PO SCH (09:18)
[2018-04-05] MEDS: FERROUS SO4 325 MG TABLET (FP) PO SCH (09:18)
[2018-04-05] MEDS: ASCORBIC ACID 500 MG TABLET (FP) PO SCH (09:18)
[2018-04-05] MEDS: PANTOPRAZOLE 40 MG TABLET (FP) PO SCH (09:18)
[2018-04-05] MEDS: CALCIUM 500MG/VIT-D 200 UNITS COMBO TABLET (FP) PO SCH (09:18)
[2018-04-05 11:29] VITALS: BP 108/64; PULSE 102; TEMP 99.3
[2018-04-05] MEDS: ACETAMINOPHEN 500 MG TABLET (FP) PO PRN (12:29)
[2018-04-05] MEDS ORDERED: oxyCODONE HCL 5 MG TABLET PO ONE ×2 (12:30)
--- NOTE | 2018-04-08 14:06 | DS ---
Physical Exam: SUBJECTIVE: Patient seen and examined on day of discharge by Jessica Rondon OBJECTIVE: surgery POD #1 s/p L4-L-5 laminectomies, interbody cage, and pedicle screw fixation, patient seen and examined at the bedside. She c/o itchiness mostly on her chest and back but she reports no active rash. Patient states she has focal pain at the incision site and discomfort with movement. She is tolerating her diet and denies any cp, fever, chills, sob. PHYSICAL EXAM JOSÉ MANUEL drain: with 95 SS dc post op PE: A&Ox3, NAD Unlabored resp on RA lumbar spine: dressing c/d/i with no evidence of dc, surrounding tissue intact with no tracking erythema, edema, rashes or skin breakdown. Drain removed with tip fully intact, drain site clean and dry with on active d/c. SS fluid in drain. B/L LE compartments, soft, supple and non-tender to palpation with +2 DP pulses. 5/5 dorsi/plantar flexion and sensation to light touch intact throughout. Skin: intact throughout with no rashes or lesions. LABS HOSPITAL COURSE: The patient was admitted to the Med-Surg Unit after an elective repair of their 4/5 stenosis and listhesis. Now, s/p L 4/5 laminectomies and interbody cage, with pedicle screw fixation. The day of surgery, the patient ambulated the hallways with assistance. Narcotic and non-narcotic pain management control was achieved with an oral and IV approach. POD#1 the drain was removed with the tip intact. Elsa-operative IV ABX were administered. DVT prophylaxis was achieved with SCDs , early ambulation and heparin SQ. Narcotic scripts and or muscle relaxants were checked with [facility] prior to escibe. The discharge instructions and an oral pain management plan were reviewed with the patient. All questions answered. Above plan discussed with Dr. Magaña and agreed. Date of Admission:04/02/18 Date of Discharge: 04/08/18 Discharge Summary Reason For Visit: LUMBAR 4 5 STENOSIS AND LISTHESIS Condition: Stable - Instructions Diet, Activity, Other Instructions: Post Operative Instructions Physical Activity Resume your normal everyday activity as tolerated. No heavy lifting or exercise until seen by your surgeon. You may walk unlimited amounts and climb stairs. You may resume driving the car when you feel safe and comfortable behind the wheel and you are no longer wearing your brace. Do not operate a vehicle while taking narcotic medication. Brace If you had back surgery, wear TLSO Brace whenever out of bed. May remove to sleep and shower. If you had neck surgery, wear surgical collar 23 hr/day. Remove to shower only. Wound Care Keep your incision clean, dry and covered at all times. Apply an occlusive dressing (Saran wrap or Tegaderm) when showering to avoid getting your incision wet. Do not submerge incision or apply ointments or creams. The nicole will be removed in the office in 10-14 days post-op. Diet There are no dietary restrictions. Eat healthy, high-fiber foods. Drink 6-8 glasses of liquid each day. This will assist in keeping your bowels regular. Pain Management You may take Tylenol or acetaminophen. Any pain prescription medication ordered should be taken as prescribed for moderate to severe pain. Call Dr Miles for any of the following: Severe pain not relieved by medication Fever of 101 or higher Excessive bleeding or drainage on dressing Inability to urinate Any chest pain or shortness of breath, seek Emergency Care. Call the office to confirm a post-operative appointment 7-10 days post-op Dwaine Magaña MD [facility] [address] [place] [address]. [place] [address] Disposition: HOME - Home Medications Comprehensive Discharge Medication List: Ambulatory Orders Aspirin Coated [Ecotrin -] 81 mg PO DAILY 07/11/17 Calcium Carb, Citrate/Vit D3 [Calcium + D3 ER Tablet] 1 each PO DAILY 07/11/17 Escitalopram Oxalate [Lexapro -] 10 mg PO HS 07/11/17 Multivit-Min/Iron/Folic/Lutein [Centrum Silver Women Tablet] 1 each PO DAILY Timolol [Betimol] 1 drop OU HS 07/22/17 Acetaminophen [Tylenol .Regular Strength -] 650 mg PO TID tablet 07/26/17 Ascorbic Acid [Vitamin C -] 1,000 mg PO DAILY tablet 07/26/17 Docusate Sodium [Colace -] 100 mg PO TID capsule 07/26/17 Pantoprazole Sodium [Protonix -] 40 mg PO DAILY tablet.ec 07/26/17 Polyethylene Glycol 3350 [Miralax 119 gm Btl -] 17 gm PO DAILY PRN bottle 07/26 traZODone HCL [Desyrel -] 50 mg PO HS tablet 07/26/17 Atorvastatin Ca [Lipitor] 20 mg PO HS 04/01/18 Lorazepam [Ativan] 1 mg PO DAILY 04/02/18
== END 2018-04-05 13:42 | disposition home or self-care (01) | DRG 460 ==
LOC: JSAMEDAYSX 06:23 → J8W 16:29 → EDSTATUS 04-03 08:00
PROVIDERS: ADMIT Neurological Surgery; ATTEND Neurological Surgery
PROC: 00NY0ZZ Release Lumbar Spinal Cord, Open Approach (ICD-10-PCS; 2018-04-02)
PROC: 0SG00AJ Fusion of Lumbar Vertebral Joint with Interbody Fusion Device, Posterior Approach, Anterior Column, Open Approach (ICD-10-PCS; principal; 2018-04-02 08:00)
DX: M48.061 Spinal stenosis, lumbar region without neurogenic claudication (principal)
CPT/HCPCS: 36415; 72131-TC; 76000-TC-FY; 80048; 85027; 86900; 88304-TC; 94760; 97116-GP; 97161-GP; J1644